=== PATIENT | male | born 1975 ===

== ENCOUNTER 2018-11-24 13:49 | Emergency (ER) | payer SELFPAY ==
[2018-11-24] MEDS ORDERED: NA CHLORIDE 0.9% 1,000 ML ONE (14:24)
[2018-11-24 14:40] LABS: Absolute Lymphocytes (CBC) 2.5 K/uL (0.7-4.9); Basophils % 0.4 % (0-1.3); Hematocrit 43.6 % (39.6-49.0); Lymphocytes % 25.9 % (15.3-44.8); MPV 7.5 fL (7.6-11.3); RBC Red Blood Cell Count 5.02 M/uL (4.33-5.43)
[2018-11-24 14:45] LABS: Protime INR 1.02
--- NOTE | 2018-11-24 14:45 | RAD REPORT ---
EXAM DESCRIPTION: Moe Single View11/24/2018 2:37 pm CLINICAL HISTORY: Chest pain COMPARISON: none FINDINGS: The lungs appear clear of acute infiltrate. The heart is normal size IMPRESSION: No acute abnormalities displayed
[2018-11-24 15:02] LABS: BUN Blood Urea Nitrogen 15 mg/dL (7-18); Bicarbonate 25 mmol/L (21-32); Glucose Level 97 mg/dL (74-106); Magnesium 2.4 mg/dL (1.8-2.4); NT PRO-BNP 22 pg/mL (<125); Potassium 4.5 mmol/L (3.5-5.1); Sodium Level 140 mmol/L (136-145); Troponin (Emerg Dept Use Only) < 0.02 ng/mL (0.0-0.045)
[2018-11-24 15:30] LABS: CKMB Creatine Kinase MB 2.8 ng/mL (0.3-3.6)
--- NOTE | 2018-11-24 15:40 | EDPHYS ---
Physician Documentation [facility] Name: Rafat Billingsley Age: 42 yrs Sex: Male : 1975 Arrival Date: 11/24/2018 Time: 13:51 Bed 18 Private MD: Unknown, Unknown ED Physician Asif Prather HPI: 11/24 14:07 This 42 yrs old Male presents to ER via Wheelchair with complaints of Electrocution. kb 14:07 Trauma demographics: County: The injury occurred in [place] Date: November 24, 2018. kb Mechanism of injury: electrocution. Associated injuries: The patient sustained left arm, painful injury. Onset: The symptoms/episode began/occurred 3 hour(s) ago. The patient has not experienced similar symptoms in the past. The patient has not recently seen a physician. Pt reports he touched a bed liner machine with left hand and it electrocuted him. States he was unable to let go of machine. Pt states he doesn't know how long it was going on, but "there was enough time for me to think about what was happening and that I needed to try to turn the machine off with my right hand." Reports somehow he was able to let go after that. Now feels pain to left arm and shoulder, lethargic, "like I worked out really hard all day." . Historical: - Allergies: 14:05 No Known Allergies; iw - Home Meds: 14:05 None [Active]; iw - PMHx: 14:05 None; iw - PSHx: 14:05 neck fusion; back; iw - Ebola Screening: : Patient negative for fever greater than or equal to 101.5 degrees Fahrenheit, and additional compatible Ebola Virus Disease symptoms Patient denies exposure to infectious person Patient denies travel to an Ebola-affected area in the 21 days before illness onset No symptoms or risks identified at this time. ROS: 14:13 Constitutional: Negative for fever, chills, and weight loss, Neck: Negative for injury, kb pain, and swelling, Cardiovascular: Negative for chest pain, palpitations, and edema, Respiratory: Negative for shortness of breath, cough, wheezing, and pleuritic chest pain, Abdomen/GI: Negative for abdominal pain, nausea, vomiting, diarrhea, and constipation, Back: Negative for injury and pain, : Negative for injury, bleeding, discharge, and swelling, Skin: Negative for injury, rash, and discoloration. 14:13 MS/extremity: Positive for pain, of the left arm. 14:13 Neuro: Positive for weakness. Exam: 14:14 Constitutional: This is a well developed, well nourished patient who is awake, alert, kb and in no acute distress. Head/Face: Normocephalic, atraumatic. Eyes: Pupils equal round and reactive to light, extra-ocular motions intact. Lids and lashes normal. Conjunctiva and sclera are non-icteric and not injected. Cornea within normal limits. Periorbital areas with no swelling, redness, or edema. ENT: Nares patent. No nasal discharge, no septal abnormalities noted. Tympanic membranes are normal and external auditory canals are clear. Oropharynx with no redness, swelling, or masses, exudates, or evidence of obstruction, uvula midline. Mucous membranes moist. Neck: Trachea midline, no thyromegaly or masses palpated, and no cervical lymphadenopathy. Supple, full range of motion without nuchal rigidity, or vertebral point tenderness. No Meningismus. Chest/axilla: Normal chest wall appearance and motion. Nontender with no deformity. No lesions are appreciated. Cardiovascular: Regular rate and rhythm with a normal S1 and S2. No gallops, murmurs, or rubs. Normal PMI, no JVD. No pulse deficits. Respiratory: Lungs have equal breath sounds bilaterally, clear to auscultation and percussion. No rales, rhonchi or wheezes noted. No increased work of breathing, no retractions or nasal flaring. Abdomen/GI: Soft, non-tender, with normal bowel sounds. No distension or tympany. No guarding or rebound. No evidence of tenderness throughout. Back: No spinal tenderness. No costovertebral tenderness. Full range of motion. Skin: Warm, dry with normal turgor. Normal color with no rashes, no lesions, and no evidence of cellulitis. MS/ Extremity: Pulses equal, no cyanosis. Neurovascular intact. Full, normal range of motion. Neuro: Awake and alert, GCS 15, oriented to person, place, time, and situation. Cranial nerves II-XII grossly intact. Motor strength 5/5 in all extremities. Sensory grossly intact. Cerebellar exam normal. Normal gait. Vital Signs: 14:05 BP 154 / 94; Pulse 94; Resp 16; Temp 98.2; Pulse Ox 99% on R/A; iw 15:00 BP 119 / 77; Pulse 66; Resp 16; Pulse Ox 99% on R/A; em 15:26 BP 119 / 71; Pulse 69; Resp 18; Pulse Ox 99% on R/A; em 16:15 BP 116 / 68; Pulse 61; Resp 16; Pulse Ox 100% on R/A; em NIH Stroke Scale Scores: 14:14 NIHSS Score: 0 kb MDM: 14:02 Patient medically screened. kb 14:07 Data reviewed: vital signs, nurses notes. Data interpreted: Pulse oximetry: on room air kb is 99 %. Interpretation: normal. 15:38 Counseling: I had a detailed discussion with the patient and/or guardian regarding: the kb historical points, exam findings, and any diagnostic results supporting the discharge/admit diagnosis, lab results, radiology results, the need for outpatient follow up, a family practitioner, to return to the emergency department if symptoms worsen or persist or if there are any questions or concerns that arise at home. ED course: Pt reports he is feeling better. Educated to rest and increased fluid intake, as well as, to return for chest pain or any other concerns. Verbal understanding received. . 11/24 14:02 Order name: Basic Metabolic Panel; Complete Time: 15:04 kb 11/24 14:02 Order name: CBC with Diff; Complete Time: 14:44 kb 11/24 14:02 Order name: Magnesium; Complete Time: 15:04 kb 11/24 14:02 Order name: NT PRO-BNP; Complete Time: 15:04 kb 11/24 14:02 Order name: PT-INR; Complete Time: 14:51 kb 11/24 14:02 Order name: Troponin (emerg Dept Use Only); Complete Time: 15:04 kb 11/24 14:02 Order name: XRAY Chest (1 view); Complete Time: 14:51 kb 11/24 14:02 Order name: EKG; Complete Time: 14:04 kb 11/24 14:02 Order name: Cardiac monitoring; Complete Time: 14:31 kb 11/24 14:02 Order name: EKG - Nurse/Tech; Complete Time: 14:31 kb 11/24 14:02 Order name: IV Saline Lock; Complete Time: 14:31 kb 11/24 14:33 Order name: CPK; Complete Time: 15:34 kb 11/24 14:33 Order name: Ckmb; Complete Time: 15:34 kb 11/24 14:02 Order name: Labs collected and sent; Complete Time: 14:31 kb 11/24 14:02 Order name: O2 Per Protocol; Complete Time: 14:31 kb 11/24 14:02 Order name: O2 Sat Monitoring; Complete Time: 14:31 kb Administered Medications: 14:25 Drug: NS 0.9% 1000 ml Route: IV; Rate: 1000 ml; Site: left antecubital; em 16:11 Follow up: IV Status: Completed infusion; IV Intake: 1000ml em Disposition: 11/25 09:55 Co-signature as Attending Physician, Asif Prather MD I agree with the assessment and spencer plan of care. Disposition: 11/24/18 15:39 Discharged to Home. Impression: Electrocution. - Condition is Stable. - Discharge Instructions: Electric Shock Injury. - Medication Reconciliation Form, Thank You Letter, Antibiotic Education, Prescription Opioid Use form. - Follow up: Emergency Department; When: As needed; Reason: Worsening of condition. Follow up: Private Physician; When: 2 - 3 days; Reason: Recheck today's complaints, Continuance of care, Re-evaluation by your physician. NIH Stroke Scale - NIH Stroke Score Date: 11/24/2018 Time: 14:14 Total Score = 0 1a. Level of Consciousness (LOC) - 0(Alert) 1b. Level of Consciousness (LOC) (Year \\T\\ Age) - 0(Both) 1c. LOC Commands (Open \\T\\ Closes Eyes/Comedian) - 0(Both) 2. Best Gaze (Lateral Gaze Paresis) - 0(Normal) 3. Visual Field Loss - 0(No visual loss) 4. Facial Palsy - 0(Normal) 5a. Left Arm: Motor (10-second hold) - 0(No drift) 5b. Right Arm: Motor (10-second hold) - 0(No drift) 6a. Left Leg: Motor (5-second hold - always test supine) - 0(No drift) 6b. Right Leg: Motor (5-second hold - always test supine) - 0(No drift) 7. Limb Ataxia (finger/nose \\T\\ heel/louie - test with eyes open) - 0(Absent) 8. Sensory Loss (pinprick arms/legs/face) - 0(Normal) 9. Best Language: Aphasia (description/naming/reading) - 0(No aphasia) 10. Dysarthria (speech clarity - read or repeat words) - 0(Normal) 11. Extinction and Inattention (visual/tactile/auditory/spatial/personal) - 0(No abnormality) Initials: kb Signatures: Dispatcher [employer] EDPatsy Gates, SOFTWARE QUALITY ASSURANCE SPECIALIST-C SOFTWARE QUALITY ASSURANCE SPECIALIST-Ckb Asif Prather MD MD cha Munoz, Edgar, MATERIAL HANDLER FLOORPERSON MATERIAL HANDLER FLOORPERSON em Kailyn Abarca, RN RN iw Corrections: (The following items were deleted from the chart) 11/24 16:15 15:39 11/24/2018 15:39 Discharged to Home. Impression: Electrocution. Condition em is Stable. Forms are Medication Reconciliation Form, Thank You Letter, Antibiotic Education, Prescription Opioid Use. Follow up: Emergency Department; When: As needed; Reason: Worsening of condition. Follow up: Private Physician; When: 2 - 3 days; Reason: Recheck today's complaints, Continuance of care, Re-evaluation by your physician. kb
--- NOTE | 2018-11-24 15:40 | ER ---
Nurse's Notes [facility] Name: Rafat Billingsley Age: 42 yrs Sex: Male : 1975 Arrival Date: 11/24/2018 Time: 13:51 Bed 18 Private MD: Unknown, Unknown Diagnosis: Electrocution Presentation: 11/24 14:02 Presenting complaint: Patient states: was electrocuted with bedliner machine at 1156 iw today, states he was unable to let go of the machine for a short period of time, denies LOC, denies chest pain, states he was sitting at home and started to feel light headed, felt his heart beating fast, now c/o left shoulder pain. Care prior to arrival: None. Trauma event details: Injury occurred in the [facility]. 14:02 Acuity: MARY 2 iw 14:02 Method Of Arrival: Wheelchair iw 14:04 Transition of care: patient was not received from another setting of care. Onset of iw symptoms was November 24, 2018. Risk Assessment: Do you want to hurt yourself or someone else? Patient reports no desire to harm self or others. Initial Sepsis Screen: Does the patient meet any 2 criteria? No. Patient's initial sepsis screen is negative. Does the patient have a suspected source of infection? No. Patient's initial sepsis screen is negative. Historical: - Allergies: 14:05 No Known Allergies; iw - Home Meds: 14:05 None [Active]; iw - PMHx: 14:05 None; iw - PSHx: 14:05 neck fusion; back; iw - Ebola Screening: : Patient negative for fever greater than or equal to 101.5 degrees Fahrenheit, and additional compatible Ebola Virus Disease symptoms Patient denies exposure to infectious person Patient denies travel to an Ebola-affected area in the 21 days before illness onset No symptoms or risks identified at this time. Screenin:20 Abuse screen: Denies threats or abuse. Nutritional screening: No deficits noted. em Tuberculosis screening: No symptoms or risk factors identified. Fall Risk None identified. Assessment: 14:20 General: Appears in no apparent distress. comfortable, Behavior is calm, cooperative, em Reports "getting electrocuted with 220". Pain: Complains of pain in left sternocleidomastoid. Neuro: Level of Consciousness is awake, alert, obeys commands, Oriented to person, place, time, situation. Cardiovascular: Capillary refill < 3 seconds Patient's skin is warm and dry. Rhythm is sinus rhythm. Respiratory: Airway is patent Respiratory effort is even, unlabored, Respiratory pattern is regular, symmetrical. GI: Abdomen is flat, Patient currently denies nausea, vomiting. Derm: Skin is intact, is healthy with good turgor, Skin is pink, warm \\T\\ dry. Musculoskeletal: Capillary refill < 3 seconds, Range of motion: intact in all extremities. 14:30 General: The previous assessment is accurate, call light remains within reach. ss 15:27 Reassessment: Patient appears in no apparent distress at this time. Patient and/or em family updated on plan of care and expected duration. Pain level reassessed. Patient is alert, oriented x 3, equal unlabored respirations, skin warm/dry/pink. Vital Signs: 14:05 BP 154 / 94; Pulse 94; Resp 16; Temp 98.2; Pulse Ox 99% on R/A; iw 15:00 BP 119 / 77; Pulse 66; Resp 16; Pulse Ox 99% on R/A; em 15:26 BP 119 / 71; Pulse 69; Resp 18; Pulse Ox 99% on R/A; em 16:15 BP 116 / 68; Pulse 61; Resp 16; Pulse Ox 100% on R/A; em NIH Stroke Scale Scores: 14:14 NIHSS Score: 0 kb ED Course: 13:51 Patient arrived in ED. ag5 13:51 Unknown, Unknown is Private Physician. ag5 14:02 Patsy Shaikh FNP-C is [facility]. kb 14:02 Asif Prather MD is Attending Physician. kb 14:04 Triage completed. iw 14:04 Arm band placed on. iw 14:05 Maldonado Goodson LVN is Primary Nurse. em 14:08 EKG done, by dialysis equipment technician. reviewed by Patsy ROBLES. at1 14:20 Patient has correct armband on for positive identification. Placed in gown. Bed in low em position. Call light in reach. youth nutritional monitor on. Pulse ox on. NIBP on. 14:30 Initial lab(s) drawn, by [facility], sent to lab. Inserted saline lock: 22 gauge in left em antecubital area, using aseptic technique. Blood collected. 14:40 XRAY Chest (1 view) In Process Unspecified. EDMS 16:02 No provider procedures requiring assistance completed. IV discontinued, intact, em bleeding controlled, No redness/swelling at site. Pressure dressing applied. Administered Medications: 14:25 Drug: NS 0.9% 1000 ml Route: IV; Rate: 1000 ml; Site: left antecubital; em 16:11 Follow up: IV Status: Completed infusion; IV Intake: 1000ml em Intake: 16:11 IV: 1000ml; Total: 1000ml. em Outcome: 15:39 Discharge ordered by . asuncion 16:02 Discharged to home ambulatory. em 16:02 Condition: good 16:02 Discharge instructions given to patient, Instructed on discharge instructions, follow up and referral plans. Demonstrated understanding of instructions, follow-up care. 16:15 Patient left the ED. em NIH Stroke Scale - NIH Stroke Score Date: 11/24/2018 Time: 14:14 Total Score = 0 1a. Level of Consciousness (LOC) - 0(Alert) 1b. Level of Consciousness (LOC) (Year \\T\\ Age) - 0(Both) 1c. LOC Commands (Open \\T\\ Closes Eyes/Hat Marker) - 0(Both) 2. Best Gaze (Lateral Gaze Paresis) - 0(Normal) 3. Visual Field Loss - 0(No visual loss) 4. Facial Palsy - 0(Normal) 5a. Left Arm: Motor (10-second hold) - 0(No drift) 5b. Right Arm: Motor (10-second hold) - 0(No drift) 6a. Left Leg: Motor (5-second hold - always test supine) - 0(No drift) 6b. Right Leg: Motor (5-second hold - always test supine) - 0(No drift) 7. Limb Ataxia (finger/nose \\T\\ heel/louie - test with eyes open) - 0(Absent) 8. Sensory Loss (pinprick arms/legs/face) - 0(Normal) 9. Best Language: Aphasia (description/naming/reading) - 0(No aphasia) 10. Dysarthria (speech clarity - read or repeat words) - 0(Normal) 11. Extinction and Inattention (visual/tactile/auditory/spatial/personal) - 0(No abnormality) Initials: asuncion Signatures: Dispatcher [employer] EDMS Patsy Shaikh, CHIEF ACCOUNTING OFFICER-C CHIEF ACCOUNTING OFFICER-Ckb Goodson, Maldonado, COOKER CASING COOKER CASING Kailyn Conway, RN RN Ashely Madsen RN RN Lula Martins, probate clerk EK Tat1 Abdoul Gallo ag5
--- NOTE | 2018-11-26 06:32 | EKG ---
Test Date: 2018-11-24 Test Time: 14:01:50 Band And Cuff Cutter: VI MEASUREMENT RESULTS: Intervals: Rate: 98 MD: 124 QRSD: 84 QT: 346 QTc: 441 [place]: P: 64 MD: 124 QRS: 61 T: 26 INTERPRETIVE STATEMENTS: Normal sinus rhythm Normal ECG No previous ECG available for comparison Electronically Signed On 11-26-18 06:31:27 CDT by Efraín Crowe
== END 2018-11-24 16:15 | disposition home or self-care (01) ==
LOC: ER 13:49
DX: T75.4XXA Electrocution, initial encounter (principal); W86.8XXA Exposure to other electric current, initial encounter; M79.602 Pain in left arm
CPT/HCPCS: 36415; 71045; 80048; 82550; 82553; 83735; 83880; 84484; 85025; 85610; 93005; 96360; 96361; 99284; J7030